=== PATIENT | female | born 1955 | race Caucasian/White ===

== ENCOUNTER 2016-10-17 18:59 | Emergency (ER) | payer OTHER ==
[~2016-10-17] VITALS: Ht 165.1 cm; Wt 96.2 kg
[~2016-10-17 18:59] MED LIST: ALBUTEROL0.09 MG/A1 INH; AMLODIPINE10 MG PO; ASPIRIN FOR AR325 MG PO; ATENOLOL25 MG PO; CRESTOR 10MG10 MG PO; DIOVAN80 MG PO; ENDOCET 325 MG-1 TA1 PO; FISH OIL CONC1000 MG PO; JANUMET 1000 MG1 TAB PO; LANTUS SOLOS100 U/ML SC; LIORESAL 10MG T10 MG PO; LOVAZA1 GM PO; LYRICA100 MG PO; MAGNESIUM OXID400 MG PO; MOTRIN 400MG (400 MG PO; NASONEX0.05 MG/Ac NAS; PERCOCET 325 MG1 TA2 PO; PRILOSEC40 MG PO; ROBITUSSIN W/CO10 ML PO; SINGULAIR10 MG PO; ULTRAM(MONOGRAP50 MG PO; VICTOZA6 MG/ML SC; VITAMIN B-121000 MCG PO; ZITHROMAX Z-PA250 M1 PO; ZOLOFT 100 MG100 MG PO; ZOLOFT50 MG PO; cane
--- NOTE | 2016-10-17 19:12 | ED MVC/FALL/TRAUMA COMPLAINT ---
History of Present Illness General Chief Complaint: Fall Stated Complaint: BIBA, FALL Source: patient, old records, EMS Exam Limitations: no limitations Vital Signs & Intake/Output Vital Signs & Intake/Output Vital Signs Date Time Temp Pulse Resp B/P Pulse O2 O2 Flow FiO2 Ox Delivery Rate 10/17 2124 97.9 72 16 147/60 98 Nasal 2.0L Cannula 10/17 1948 Nasal 2.0L Cannula 10/17 1905 98.2 70 18 152/67 96 Room Air Allergies Coded Allergies: clopidogrel (From PLAVIX) (Intermediate, FACIAL SWELLING 11/29/15) celecoxib (From CELEBREX) (HYPERGLYCEMIA 11/29/15) Uncoded Allergies: STEROID (HYPERGLYCEMIA 11/29/15) Reconcile Medications Albuterol Sulfate (Albuterol Sulfate Hfa) 0.09 MG/Actuation ARLENE 2 PUFF INH Q4- 6 PRN PRN SHORTNESS OF BREATH 90 MCG PER PUFF Amlodipine Besylate (Amlodipine) 10 MG TABLET 1 TAB PO DAILY BP (Reported) Aspirin (Aspirin For Arthritis) 325 MG ECT 1 TAB PO DAILY ARTHRITIS (Reported ) Atenolol 25 MG TABLET 1 TAB PO DAILY BP (Reported) Azithromycin (Zithromax Z-Parminder) 250 MG CAP 1 DP PO AD BRONCHITIS 2 the first day followed by 1 for days 2-5 Baclofen (Lioresal) 10 MG TAB 1 TAB PO TIDPRN PRN muscle strain Fish Oil (Fish Oil Concentrate) 1,000 MG SGL 2 CAP PO BID HEART HEALTH ( Reported) Ibuprofen 400 MG TAB 1 TAB PO Q6-PRN PRN pain Insulin Glargine, Recombinan (Lantus Solostar) 100 U/ML JANNA 20 U SC DAILY DIABETES (Reported) Liraglutide (Victoza 3-Parminder) 0.6 MG/0.1 ML (18 MG/3 ML) PEN.INJCTR 1.8 mg SC DAILY DIABETES (Reported) Magnesium Oxide 400 MG TABLET 1 TAB PO DAILY SUPPLEMENT (Reported) Metformin Hydrochloride/Sheridan (Janumet 1000 MG-50 MG) 1 TAB TAB 1 TAB PO BID DIABETES (Reported) Montelukast Sodium (Singulair) 10 MG TABLET 1 TAB PO QPM ALLERGIES (Reported) Omeprazole (Prilosec) 40 MG ECC 1 CAP PO DAILY ACID REFLUX (Reported) Oxycodone HCl/Acetaminophen (Percocet 5-325 MG Tablet) 5 MG-325 MG TABLET 1-2 TAB PO Q6P PRN pain Pregabalin (Lyrica) 100 MG CAPSULE 1 CAP PO BID NEUROPATHY/FIBROMYALGIA ( Reported) Robitussin AC (Guaifenesin-Codeine Syrup) 10 ML UDC 1-2 TSP PO Q6H PRN COUGH Rosuvastatin Calcium (Crestor) 10 MG TABLET 1 TAB PO DAILY CHOLESTEROL ( Reported) Sertraline (Zoloft 100 MG Tab) 100 MG TAB 1 TAB PO DAILY ANXIETY (Reported) Valsartan (Diovan) 80 MG TAB 1 TAB PO DAILY HTN (Reported) Triage Note: PT BIBA S/P MECHANICAL FALL, PT TRIPPED OVER CURB AND "DIVED HEAD FIRST ONTO THE SIDEWALK". PER PT SHE HIT HER LEFT SIDE OF HER HEAD, ALSO COMPLAINING OF 10/10 RIGHT SIDED SHOULDER AND RIGHT RIB PAIN. PT HAS HX OF ROTATER CUFF SURGERY. PER PT -LOC, PT TAKES FULL STRENGTH ASPIRIN DAILY Triage Nurses Notes Reviewed? yes Onset: Abrupt Duration: hour(s):, constant, continues in ED Timing: recent history Severity: moderate, severe Injuries/Fall Location: head, neck, chest Method of Injury: fall Loss of Consciousness: no loss of consciousness No Modifying Factors: none HPI: 61-year-old female comes into the emergency room for further evaluation after falling outside. Patient reports that she tripped and fell. Patient on her right side. Patient complaining of significant pain to her right shoulder and right side of her chest. Denies any headache but also hit her head. Denies any neck pain. Denies any abdominal pain or hip pain. Denies any other associated symptoms. Patient came in by ambulance. Patient is on a full strength aspirin (CORWIN CORTEZ) Past History Travel History Traveled to [place] past 21 day No Medical History Any Pertinent Medical History? see below for history Cardiovascular: hypertension, hyperlipidemia Psychiatric: depression Endocrine: diabetes Surgical History Surgical History: PTCA Psychosocial History What is your primary language Nepali Family History Hx Contributory? No (CORWIN CORTEZ) Review of Systems Review of Systems Constitutional: Reports: no symptoms. Eyes: Reports: no symptoms. Ears, Nose, Throat, Mouth: Reports: no symptoms. Respiratory: Reports: no symptoms. Cardiovascular: Reports: no symptoms. Gastrointestinal/Abdominal: Reports: no symptoms. Genitourinary: Reports: no symptoms. Musculoskeletal: Reports: see HPI. Skin: Reports: no symptoms. Neurological/Psychological: Reports: no symptoms. All Other Systems: Reviewed and Negative (CORWIN CORTEZ) Physical Exam Physical Exam General Appearance: well developed/nourished, alert, awake, mild distress Head: atraumatic, normal appearance Eyes: Bilateral: normal appearance, PERRL, EOMI. Ears, Nose, Throat, Mouth: hearing grossly normal, dental injury, moist mucous membrane Neck: normal inspection, supple, full range of motion, no midline tenderness Respiratory: no respiratory distress, CHEST WALL TENDERNESS RIGHT SIDE Cardiovascular: regular rate/rhythm Gastrointestinal: normal bowel sounds, soft, non-tender Back: normal inspection, normal range of motion Extremities: normal range of motion Neurologic/Psych: awake, alert, oriented x 3, normal gait Skin: intact, normal color Core Measures ACS in differential dx? No Severe Sepsis Present: No Septic Shock Present: No (CORWIN CORTEZ) Progress Differential Diagnosis: abd injury, C/T/L spine injury, ext injury, ICH, pelvis injury, pnemothorax, spinal cord injury, RIB FRACTURES, PROXIMAL HUMERUS FRACTURE, RIGHT SHOULDER DISLOCATION Plan of Care: Orders Procedure Date/time Status Durable Medical Equipment 10/17 2101 Active Diagnostic Imaging: Viewed by Me: Radiology Read, CT Scan. Discussed w/RAD: Radiology Read, CT Scan. Radiology Impression: SERVICE DATE: 10/17/16 EXAM TYPE: CAT - CT CHEST WO IV CONTRAST EXAMINATION: CT CHEST WITHOUT CONTRAST CLINICAL INFORMATION: Fall, right rib pain. Right shoulder pain. Hit head COMPARISON: 02/11/2016 TECHNIQUE: Multidetector volumetric CT imaging of the chest was done. Axial MIP volume rendering provided. Sagittal and coronal reformatted images were obtained. DLP: 549 mGy-cm. 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 No dislocation. LUNGS: Borderline bilateral lower lobe bronchiectasis. Patchy areas of groundglass opacity and streaky consolidation are seen in the lungs bilaterally, left greater than right, greater in the lower lobes and dependently. MEDIASTINUM: The main pulmonary artery is dilated to 3.5 cm. The right pulmonary artery is dilated to 3 cm. Mild to moderate cardiomegaly. No pericardial effusion. Prominent but not pathologically enlarged right and left paratracheal lymph nodes are present. PLEURA: No pleural effusion or pneumothorax. AXILLA: No lymphadenopathy. UPPER ABDOMEN: Splenomegaly. No adrenal mass. 1.5 cm rim calcified splenic artery aneurysm. OSSEOUS STRUCTURES: Mildly comminuted right humeral head fracture. No displaced rib fracture seen. IMPRESSION: Partially imaged comminuted right humeral head fracture. No displaced rib fracture seen. Splenomegaly. 1.5 cm rim calcified splenic artery aneurysm. The main pulmonary artery and right pulmonary artery are dilated consistent with pulmonary arterial hypertension. Mild to moderate cardiomegaly. Borderline bilateral lower lobe bronchiectasis. Patchy areas of groundglass opacity and streaky consolidation are seen. This most likely represents atelectasis but pneumonitis or bronchitis are possible as well. DICTATED BY: KIMI MALIN MD DATE/TIME DICTATED:10/17/162036 SCHOOL COUNSELOR:ROSHNI , SERVICE DATE: 10/17/16 EXAM TYPE: CAT - CT CERV SPINE WO IV CONTRAST EXAMINATION: CT CERVICAL SPINE WITHOUT CONTRAST CLINICAL INFORMATION: Fall. COMPARISON: None. TECHNIQUE: Axial images obtained through cervical spine. Coronal and sagittal reformatted images performed at the CT scanner. FINDINGS: No fracture. No subluxation. No prevertebral soft tissue swelling. Multilevel degenerative spondylosis. Cervical disc height narrowing C3-C4 to C6-C7 with endplate spurs of the vertebrae. Facet joints are normal. IMPRESSION: 1. No acute change. 2. Degenerative spondylosis of cervical spine. DICTATED BY: MUSA RODRIGUES MD DATE/TIME DICTATED:10/17/162037 SCHOOL COUNSELOR:ROSHNI DATE/ TIME TRANSCRIBED:10/17/162037, SERVICE DATE: 10/17/16 EXAM TYPE: CAT - CT HEAD WO IV CONTRAST EXAMINATION: CT HEAD WITHOUT CONTRAST CLINICAL INFORMATION: Fall. COMPARISON: None. TECHNIQUE: Contiguous axial imaging was performed from the skull base to vertex without intravenous administration of contrast. FINDINGS: There is no evidence of acute intracranial hemorrhage or territorial infarction. No abnormal mass effect or midline shift is seen. Brewer to white matter differentiation is well preserved. No extra-axial fluid collections are identified. The ventricles are normal in size. There is no abnormal attenuation within the brain parenchyma. The osseous structures and soft tissues are normal. The mastoid air cells and visualized portions of the paranasal sinuses are well aerated. IMPRESSION: No acute intracranial pathology. , SERVICE DATE: 10/17/16 EXAM TYPE: RAD - XRY-SHOULDER COMPLETE-RIGHT EXAMINATION: XR SHOULDER, RIGHT CLINICAL INFORMATION: Right shoulder pain after fall COMPARISON: Chest CT earlier today TECHNIQUE: AP and axillary Y views of the right shoulder FINDINGS: There is a fracture through the right humeral neck extending to involve the right humeral head. No dislocation. Visualized right lung and ribs are normal. Right acromioclavicular joint and visualized right clavicle are intact. IMPRESSION: Fracture through the right humeral neck extending to involve the right humeral head. The degree of comminution is better demonstrated on the earlier chest CT. DICTATED BY: KIMI MALIN MD DATE/TIME DICTATED:10/17/162047 SCHOOL COUNSELOR:ROSHNI DATE/TIME TRANSCRIBED:2047 (CORWIN CORTEZ) Departure Departure Disposition: HOME OR SELF CARE Condition: Stable Clinical Impression Primary Impression: Closed fracture of right proximal humerus Secondary Impressions: Rib contusion Referrals: ELIUD CENTENO (PCP/Family) FRANK VILLANUEVA MD Additional Instructions: Take Percocet for pain. Follow-up with orthopedic doctor provided. Return if any concerns worsening of symptoms. Please go over all results of today's visit with your primary care doctor. Contact your primary care doctor to let them know you were here in the emergency room. There may be nonspecific findings which may not be related to your visit today here in the emergency room but may require further evaluation and chronic monitoring by your primary care doctor. If you had a laceration today the chance of foreign body always remains. You should follow-up with your primary care doctor for recheck in 3-5 days for a wound check. If you had an x-ray done there is a chance that a fracture could have been missed on initial read and you should follow-up with your primary care doctor for repeat x-rays if symptoms persist. If your blood pressure was elevated here in the emergency room please have rechecked by her primary care doctor within the next 48 hours by your primary care doctor. If you were prescribed a narcotic here in the emergency room or any type of controlled substances you're not allowed to drive while taking this medication or operate any type of heavy machinery. Narcotics can make you feel lightheaded dizziness nausea and can cause constipation. You may need to fiber picker a stool softener. Thank you for choosing [facility] emergency room. Please return to the emergency room immediately if you have any other concerns worsening of symptoms. Departure Forms: Customer Survey General Discharge Information Prescriptions: Current Visit Scripts Oxycodone HCl/Acetaminophen (Percocet 5-325 MG Tablet) 1-2 TAB PO Q6P PRN pain #20 TAB Comments 10/17/2016 10:11:36 PM Patient clinically looks well. Nontoxic-appearing. Follow-up with orthopedic doctor. Return if any other concerns. No evidence of any other acute trauma. Return if any other concerns. (CORWIN CORTEZ) PA/REGIONAL SALES ENGINEER Co-Sign Statement Statement: ED Attending supervision documentation- x I saw and evaluated the patient. I have also reviewed all the pertinent lab results and diagnostic results. I agree with the findings and the plan of care as documented in the PA's/REGIONAL SALES ENGINEER's documentation. [] I have reviewed the ED Record and agree with the PA's/REGIONAL SALES ENGINEER's documentation. [] Additions or exceptions (if any) to the PAs/REGIONAL SALES ENGINEER's note and plan are summarized below: [] (EDMOND DIAZ,NICOL) Procedures Splinting Location: right shoulder Manual Alignment Performed: No Pre-Made Type: shoulder immobilizer Splint Applied By: splint applied by me Pre-Proc Neuro Vasc Exam: normal Post-Proc Neuro Vasc Exam: normal (CORWIN CORTEZ)
--- NOTE | 2016-10-17 20:41 | CT SCAN REPORT ---
EXAMINATION: CT HEAD WITHOUT CONTRAST CLINICAL INFORMATION: Fall. COMPARISON: None. TECHNIQUE: Contiguous axial imaging was performed from the skull base to vertex without intravenous administration of contrast. FINDINGS: There is no evidence of acute intracranial hemorrhage or territorial infarction. No abnormal mass effect or midline shift is seen. Brewer to white matter differentiation is well preserved. No extra-axial fluid collections are identified. The ventricles are normal in size. There is no abnormal attenuation within the brain parenchyma. The osseous structures and soft tissues are normal. The mastoid air cells and visualized portions of the paranasal sinuses are well aerated. IMPRESSION: No acute intracranial pathology.
--- NOTE | 2016-10-17 20:46 | CT SCAN REPORT ---
EXAMINATION: CT CERVICAL SPINE WITHOUT CONTRAST CLINICAL INFORMATION: Fall. COMPARISON: None. TECHNIQUE: Axial images obtained through cervical spine. Coronal and sagittal reformatted images performed at the CT scanner. FINDINGS: No fracture. No subluxation. No prevertebral soft tissue swelling. Multilevel degenerative spondylosis. Cervical disc height narrowing C3-C4 to C6-C7 with endplate spurs of the vertebrae. Facet joints are normal. IMPRESSION: 1. No acute change. 2. Degenerative spondylosis of cervical spine.
--- NOTE | 2016-10-17 20:49 | CT SCAN REPORT ---
EXAMINATION: CT CHEST WITHOUT CONTRAST CLINICAL INFORMATION: Fall, right rib pain. Right shoulder pain. Hit head COMPARISON: 02/11/2016 TECHNIQUE: Multidetector volumetric CT imaging of the chest was done. Axial MIP volume rendering provided. Sagittal and coronal reformatted images were obtained. DLP: 549 mGy-cm. 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 No dislocation. LUNGS: Borderline bilateral lower lobe bronchiectasis. Patchy areas of groundglass opacity and streaky consolidation are seen in the lungs bilaterally, left greater than right, greater in the lower lobes and dependently. MEDIASTINUM: The main pulmonary artery is dilated to 3.5 cm. The right pulmonary artery is dilated to 3 cm. Mild to moderate cardiomegaly. No pericardial effusion. Prominent but not pathologically enlarged right and left paratracheal lymph nodes are present. PLEURA: No pleural effusion or pneumothorax. AXILLA: No lymphadenopathy. UPPER ABDOMEN: Splenomegaly. No adrenal mass. 1.5 cm rim calcified splenic artery aneurysm. OSSEOUS STRUCTURES: Mildly comminuted right humeral head fracture. No displaced rib fracture seen. IMPRESSION: Partially imaged comminuted right humeral head fracture. No displaced rib fracture seen. Splenomegaly. 1.5 cm rim calcified splenic artery aneurysm. The main pulmonary artery and right pulmonary artery are dilated consistent with pulmonary arterial hypertension. Mild to moderate cardiomegaly. Borderline bilateral lower lobe bronchiectasis. Patchy areas of groundglass opacity and streaky consolidation are seen. This most likely represents atelectasis but pneumonitis or bronchitis are possible as well.
--- NOTE | 2016-10-17 20:53 | RADIOLOGY REPORT ---
EXAMINATION: XR SHOULDER, RIGHT CLINICAL INFORMATION: Right shoulder pain after fall COMPARISON: Chest CT earlier today TECHNIQUE: AP and axillary Y views of the right shoulder FINDINGS: There is a fracture through the right humeral neck extending to involve the right humeral head. No dislocation. Visualized right lung and ribs are normal. Right acromioclavicular joint and visualized right clavicle are intact. IMPRESSION: Fracture through the right humeral neck extending to involve the right humeral head. The degree of comminution is better demonstrated on the earlier chest CT.
[2016-10-17] MEDS ORDERED: PERCOCET 5-3251 EACH PO (21:07)
[2016-10-17 21:25] VITALS: BP 147/60
== END 2016-10-17 21:33 ==
LOC: ERH 18:59
DX: S42.211A Unspecified displaced fracture of surgical neck of right humerus, initial encounter for closed fracture (principal); S20.211A Contusion of right front wall of thorax, initial encounter; W18.09XA Striking against other object with subsequent fall, initial encounter
CPT/HCPCS: 73030-RT; 96374

== ENCOUNTER 2017-12-26 21:32 | Emergency (ER) | payer OTHER ==
[~2017-12-26 21:32] MED LIST changes: +PERCOCET 5-3251 EACH PO; +PROAIR HFA8.5 GM INH; +ZITHROMAX250 M2 PO
--- NOTE | 2017-12-26 21:38 | ED GI/GU/ABDOMINAL COMPLAINT ---
History of Present Illness General Chief Complaint: Nausea, Vomiting, Diarrhea Stated Complaint: BIBA NVD Source: patient Exam Limitations: no limitations Vital Signs & Intake/Output Vital Signs & Intake/Output Vital Signs Date Time Temp Pulse Resp B/P B/P Pulse O2 O2 Flow FiO2 Mean Ox Delivery Rate 12/27 0117 96.7 78 18 149/67 95 Room Air 12/26 2255 96.0 86 16 165/79 100 Room Air 12/26 2152 84 18 184/79 100 Room Air ED Intake and Output 12/27 0000 12/26 1200 Intake Total 0 Output Total Balance 0 Intake, Oral 0 Allergies Coded Allergies: clopidogrel (From PLAVIX) (Intermediate, FACIAL SWELLING 11/29/15) celecoxib (From CELEBREX) (HYPERGLYCEMIA 11/29/15) Uncoded Allergies: STEROID (HYPERGLYCEMIA 11/29/15) Reconcile Medications Albuterol Sulfate (Proair Hfa) 90 MCG HFA.AER.AD 2 INH INH Q6P PRN wheezing/ cough Albuterol Sulfate (Albuterol Sulfate Hfa) 0.09 MG/Actuation ARLENE 2 PUFF INH Q4- 6 PRN PRN SHORTNESS OF BREATH 90 MCG PER PUFF Amlodipine Besylate (Amlodipine) 10 MG TABLET 1 TAB PO DAILY BP (Reported) Aspirin (Aspirin For Arthritis) 325 MG ECT 1 TAB PO DAILY ARTHRITIS (Reported ) Atenolol 25 MG TABLET 1 TAB PO DAILY BP (Reported) Azithromycin (Zithromax) 250 MG TABLET 1 DP PO AD COPD/BRONCHITIS 2 the first day followed by 1 for days 2-5 Azithromycin (Zithromax Z-Parminder) 250 MG CAP 1 DP PO AD BRONCHITIS 2 the first day followed by 1 for days 2-5 Baclofen (Lioresal) 10 MG TAB 1 TAB PO TIDPRN PRN muscle strain Fish Oil (Fish Oil Concentrate) 1,000 MG SGL 2 CAP PO BID HEART HEALTH ( Reported) Ibuprofen 400 MG TAB 1 TAB PO Q6-PRN PRN pain Insulin Glargine, Recombinan (Lantus Solostar) 100 U/ML JANNA 20 U SC DAILY DIABETES (Reported) Liraglutide (Victoza 3-Parminder) 0.6 MG/0.1 ML (18 MG/3 ML) PEN.INJCTR 1.8 mg SC DAILY DIABETES (Reported) Magnesium Oxide 400 MG TABLET 1 TAB PO DAILY SUPPLEMENT (Reported) Meclizine HCl 25 MG TABLET 1 TAB PO TIDPRN PRN vertigo Metformin Hydrochloride/[place]idan (Janumet 1000 MG-50 MG) 1 TAB TAB 1 TAB PO BID DIABETES (Reported) Montelukast Sodium (Singulair) 10 MG TABLET 1 TAB PO QPM ALLERGIES (Reported) Omeprazole (Prilosec) 40 MG ECC 1 CAP PO DAILY ACID REFLUX (Reported) Ondansetron (Zofran Odt) 4 MG TAB.RAPDIS 1 TAB SL TID PRN vertigo Oxycodone HCl/Acetaminophen (Percocet 5-325 MG Tablet) 5 MG-325 MG TABLET 1-2 TAB PO Q6P PRN pain Pregabalin (Lyrica) 100 MG CAPSULE 1 CAP PO BID NEUROPATHY/FIBROMYALGIA ( Reported) Robitussin AC (Guaifenesin-Codeine Syrup) 10 ML UDC 1-2 TSP PO Q6H PRN COUGH Rosuvastatin Calcium (Crestor) 10 MG TABLET 1 TAB PO DAILY CHOLESTEROL ( Reported) Sertraline (Zoloft 100 MG Tab) 100 MG TAB 1 TAB PO DAILY ANXIETY (Reported) Valsartan (Diovan) 80 MG TAB 1 TAB PO DAILY HTN (Reported) Triage Nurses Notes Reviewed? yes ? n Is pt currently ? No Onset: Gradual Duration: hour(s): Timing: recent history Quality/Severity: cramping Location: generalized abdomen Radiation: no radiation Activities at Onset: none Modifying Factors: Worsens With: vomiting. Associated Symptoms: nausea/vomiting HPI: 62 yo woman h/o vertigo, presents with dizziness, nausea, vomiting after eating at a diner this evening. She notes vertigo with head movement, "just like I've had before." She notes eating a hamburger but no other suspicious foods. 911 called. She was given zofran 8mg with only moderate effect. She has no chest pain, shortness of breath, dyspnea, chills. She is otherwise well. Past History Medical History Any Pertinent Medical History? see below for history Neurological: vertigo Cardiovascular: hypertension, hyperlipidemia Psychiatric: depression Endocrine: diabetes Surgical History Surgical History: PTCA Psychosocial History What is your primary language Swedish Family History Hx Contributory? No Review of Systems Review of Systems Constitutional: Reports: no symptoms. EENTM: Reports: no symptoms. Respiratory: Reports: no symptoms. Cardiovascular: Reports: no symptoms. GI: Reports: no symptoms. Genitourinary: Reports: no symptoms. Musculoskeletal: Reports: no symptoms. Skin: Reports: no symptoms. Neurological/Psychological: Reports: no symptoms. Hematologic/Endocrine: Reports: no symptoms. Immunologic/Allergic: Reports: no symptoms. All Other Systems: Reviewed and Negative Physical Exam Physical Exam General Appearance: well developed/nourished, mild distress Head: atraumatic, normal appearance Eyes: Bilateral: normal appearance, PERRL, EOMI. Ears, Nose, Throat, Mouth: hearing grossly normal, moist mucous membrane Neck: normal inspection, supple, full range of motion Respiratory: normal breath sounds, chest non-tender, no respiratory distress, quiet respiration, lungs clear Cardiovascular: regular rate/rhythm Gastrointestinal: normal bowel sounds, soft, non-tender, no organomegaly Back: normal inspection, normal range of motion Extremities: normal range of motion Neurologic/Psych: awake, alert, oriented x 3, vertigo elicited with head movement. Skin: intact, normal color, warm/dry Core Measures ACS in differential dx? No Sepsis Present: No Sepsis Focused Exam Completed? No Progress Differential Diagnosis: vertigo vs food poisoning vs other. Plan of Care: Orders Procedure Date/time Status TROPONIN LEVEL 12/26 2137 Complete LIPASE 12/26 2137 Complete HEPATIC FUNCTION PANEL 12/26 2137 Complete CBC WITHOUT DIFFERENTIAL 12/26 2137 Complete BASIC METABOLIC PANEL 12/26 2137 Complete AMYLASE 12/26 2137 Complete EKG 12/26 2137 Active Laboratory Tests 12/26/175: Anion Gap 16, Estimated GFR 50 L, BUN/Creatinine Ratio 13.6, Glucose 186 H, Calcium 9.8, Total Bilirubin 0.6, Direct Bilirubin 0.5 H, AST 43 H, ALT 72 H, Alkaline Phosphatase 82, Troponin I < 0.01, Total Protein 7.7, Albumin 4.2, Amylase 37, Lipase 97, CBC w Diff NO MAN DIFF REQ, RBC 4.12 L, MCV 84.3, MCH 28.1, MCHC 33.3, RDW 16.0 H, MPV 8.8, Gran % 60.7, Lymphocytes % 28.7, Monocytes % 5.8, Eosinophils % 4.3, Basophils % 0.5, Absolute Granulocytes 5.4, Absolute Lymphocytes 2.5, Absolute Monocytes 0.5, Absolute Eosinophils 0.4, Absolute Basophils 0 Diagnostic Imaging: Viewed by Me: CT Scan. Discussed w/RAD: CT Scan. Radiology Impression: PATIENT: AMERICA HOLMAN PRESENT AGE: 62 PATIENT ACCOUNT NO: [id number] : 56 LOCATION: [facility] ORDERING PHYSICIAN: Aristeo Isidro MD SERVICE DATE: 12/26/17 EXAM TYPE: CAT - CT HEAD WO IV CONTRAST EXAMINATION: CT HEAD WITHOUT CONTRAST CLINICAL INFORMATION: Intractable vertigo COMPARISON: CT head October 17, 2016 TECHNIQUE: Contiguous axial imaging was performed from the skull base to vertex without intravenous administration of contrast. DLP: 635.32 mGy-cm FINDINGS: There is no evidence of acute intracranial hemorrhage or territorial infarction. No abnormal mass effect or midline shift is seen. Brewer to white matter differentiation is well preserved. No extra-axial fluid collections are identified. There is vascular wall calcification of the internal carotid artery at the carotid artery siphon bilaterally. The ventricles are normal in size. There is no abnormal attenuation within the brain parenchyma. The osseous structures and soft tissues are normal. The mastoid air cells and visualized portions of the paranasal sinuses are well aerated. IMPRESSION: No acute intracranial pathology. DICTATED BY: Yoan Meyer MD DATE/TIME DICTATED:12/27/1751 [employer]:ROSHNI DATE/TIME TRANSCRIBED:12/27/1751 CONFIDENTIAL, DO NOT COPY WITHOUT APPROPRIATE AUTHORIZATION. <Electronically signed in Other Vendor System> SIGNED BY: Yoan Meyer MD 12/27/1756 Initial ED EKG: nsr, non specific changes. Departure Departure Disposition: HOME OR SELF CARE Condition: Stable Clinical Impression Primary Impression: Vertigo Referrals: Radha Bañuelos APRN (PCP/Family) Departure Forms: Customer Survey General Discharge Information Prescriptions: Current Visit Scripts Meclizine HCl 1 TAB PO TIDPRN PRN vertigo #30 TAB Ref 1 Ondansetron (Zofran Odt) 1 TAB SL TID PRN vertigo #10 TAB Ref 1 Comments 12/27/17, 1:13AM.... pt feeling better after supportive medications.... benign labs and ct scan... she feels comfortable going home and ambulates without problem.
[2017-12-26 21:54] LABS: ABSOLUTE BASOPHIL COUNT 0 /CUMM (0.0-0.2); ABSOLUTE EOSINOPHIL COUNT 0.4 /CUMM (0.0-0.7); ABSOLUTE GRANULOCYTE CT 5.4 /CUMM (1.4-6.5); ABSOLUTE LYMPH COUNT 2.5 /CUMM (1.2-3.4); ABSOLUTE MONOCYTE COUNT 0.5 /CUMM (0.10-0.60); BASOPHIL % 0.5 % (0.0-2.0); EOSINOPHIL % 4.3 % (0-5); GRANULOCYTE % 60.7 % (42.2-75.2); HEMATOCRIT 34.7 % (37-47); MEAN CORPUSCULAR HGB 28.1 PG (27.0-31.0); MEAN CORPUSCULAR HGB CONC 33.3 G/DL (33.0-37.0); MEAN CORPUSCULAR VOLUME 84.3 FL (81.0-99.0); MEAN PLATELET VOLUME 8.8 FL (7.4-10.4); PLATELET COUNT 227 /CUMM (130-400); RED BLOOD CELL CT 4.12 /CUMM (4.20-5.40); WHITE BLOOD CELL COUNT 8.9 /CUMM (4.8-10.8)
[2017-12-26] MEDS ORDERED: ZOFRAN ODT4 M1 SL (21:56)
[2017-12-26] MEDS ORDERED: MECLIZINE HCL25 MG PO (21:56)
--- NOTE | 2017-12-26 23:24 | RADIOLOGY REPORT ---
EXAMINATION: XR PORTABLE CHEST CLINICAL INFORMATION: Shortness of breath COMPARISON: 11/18/2016 TECHNIQUE: Portable frontal view of the chest was obtained. FINDINGS: Limited expiratory chest with increased markings at both bases particularly on the right. No significant abnormality is noted involving the heart, lungs, mediastinum, bony thorax or soft tissues. IMPRESSION: Limited exam. Cannot exclude minor right basilar atelectasis or pneumonia.
--- NOTE | 2017-12-27 00:57 | CT SCAN REPORT ---
EXAMINATION: CT HEAD WITHOUT CONTRAST CLINICAL INFORMATION: Intractable vertigo COMPARISON: CT head October 17, 2016 TECHNIQUE: Contiguous axial imaging was performed from the skull base to vertex without intravenous administration of contrast. DLP: 635.32 mGy-cm FINDINGS: There is no evidence of acute intracranial hemorrhage or territorial infarction. No abnormal mass effect or midline shift is seen. Brewer to white matter differentiation is well preserved. No extra-axial fluid collections are identified. There is vascular wall calcification of the internal carotid artery at the carotid artery siphon bilaterally. The ventricles are normal in size. There is no abnormal attenuation within the brain parenchyma. The osseous structures and soft tissues are normal. The mastoid air cells and visualized portions of the paranasal sinuses are well aerated. IMPRESSION: No acute intracranial pathology.
[2017-12-27 01:17] VITALS: BP 149/67
== END 2017-12-27 01:25 ==
LOC: ERH 21:32
PROVIDERS: Pediatrics
DX: R42 Dizziness and giddiness (principal)
CPT/HCPCS: 71045; 93005; 93010; 96374; 96375; J2550; J2765